=== PATIENT | male | born 1940 | race Caucasian/White ===

== ENCOUNTER 2017-04-19 05:40 | Day surgery (SDC) | payer OTHER ==
--- NOTE | 2017-04-13 17:52 | GHP ---
[f rep st] HISTORY AND PHYSICAL DATE OF ADMISSION: 04/19/2017 HISTORY OF PRESENT ILLNESS: The patient daphne 77-year-old male who underwent bilateral deep brain stim ulator lead placement to the VIM in [place] approximately 4 years ago. He has one generator at the right chest wall. He recently moved to [place] 12 to 18 months ago. He does not take any medicatio ns for the essential tremor and is pleased with the tremor control to be obtained from the DBS. He i s here today due to battery nearing end of life. PAST MEDICAL HISTORY: Essential tremor, hypertension, hyperlipidemia. PAST SURGICAL HISTORY: Bilateral DBS in 2012. SOCIAL HISTORY: Patient admits to alcohol use occasionally. Denies tobacco use. He is and has 3 children. He is retired. ALLERGIES: No known drug allergies. CURRENT HOME MEDICATIONS: Lisinopril and atorvastatin. REVIEW OF SYSTEMS: Patient denies chest pain, shortness of breath, abdominal pain, nausea, vomiting, fevers, or chills. Admits to tremors. FAMILY HISTORY: No pertinent neurosurgical family history. PHYSICAL EXAM: Patient seen and examined, appears to be in no apparent distress. Mood and affect ar e appropriate. Alert and oriented. Facial expression is symmetrical. Pupils are equal and reactive . Speech is fluent without dysarthria. The hearing is grossly intact. Muscle strength is well pres erved in his upper and lower extremities with 5/5. Sensation is intact to light touch. ASSESSMENT AND PLAN: In summary, the patient is a 77-year-old male with bilateral deep brain stimula tion for essential tremor with 1 generator located at the right chest wall. His internal pulse gener ator was interrogated. The current settings are left VIM at 1 negative, 0 positive, amplitude 3.4, p ulse width 60, rate 185. Impedance within normal limits. Right VIM 9 negative, 8 positive, amplitud e 3.3, pulse width 60, rate 185, impedance within normal limits. His battery status is nearing end o f life with status at 2.59 elective replacement indicator. We recommend proceeding with replacement of the right deep brain stimulation internal pulse generator. The risks, benefits, and procedure wer e discussed in detail with patient. The patient agrees and has consented. All questions and concern s were addressed and answered. /[id number]/MODL
[2017-04-19] MEDS ORDERED: LIDOCAINE 1% 2 ML INJ ID PRN (05:49)
[2017-04-19] MEDS ORDERED: LR 1,000 ML IV ONE (05:49)
[2017-04-19] MEDS ORDERED: ceFAZolin 2 GM/SWFI 2 GM/20 ML SYR IVP ONE (06:00)
[2017-04-19] MEDS ORDERED: CHLORHEXIDINE GLUC HIBICLENS 118 ML BTL TP ONE (06:45)
[2017-04-19] MEDS ORDERED: GENTAMICIN SULFATE 80 MG/2 ML VIAL ONE (06:46)
--- NOTE | 2017-04-19 06:55 | PDHPUP ---
History & Physical Update H&P update statement: This history and physical update is based on an assessment of the patient which was completed after admission or registration (within 24 hours), but prior to the surgery/procedure.
[2017-04-19] MEDS ORDERED: fentaNYL 100 MCG/2 ML INJ ONE (07:07)
[2017-04-19] MEDS ORDERED: LIDOCAINE 2% 5 ML SDV ONE (07:07)
[2017-04-19] MEDS ORDERED: PROPOFOL 200 MG/20 ML VIAL ONE (07:07)
--- NOTE | 2017-04-19 07:10 | PDANEPAE ---
ANE History of Present Illness patient presents for generator change (DBS). ANE Past Medical History - Cardiovascular History Hx Hypertension: Yes Hx Arrhythmias: No Hx Chest Pain: No Hx Coronary Artery / Peripheral Vascular Disease: No Hx CHF / Valvular Disease: No Hx Palpitations: No Cardiovascular History Comment: pt states has murmur unknown to which valve involved - Pulmonary History Hx COPD: No Hx Asthma/Reactive Airway Disease: No Hx Recent Upper Respiratory Infection: No Hx Oxygen in Use at Home: No Hx Sleep Apnea: No Sleep Apnea Screening Result - Last Documented: Positive - Neurologic History Hx Cerebrovascular Accident: No Hx Seizures: No Hx Dementia: No - Endocrine History Hx Diabetes: No - Renal History Hx Renal Disorders: Yes Renal History Comment: hx bladder ca - Liver History Hx Hepatic Disorders: No - Neurological & Psychiatric Hx Hx Neurological and Psychiatric Disorders: Yes Neurological / Psychiatric History Comment: essential tremor - Cancer History Hx Cancer: Yes Cancer History Comment: bladder - Congenital Disorder History Hx Congenital Disorders: No - GI History Hx Gastrointestinal Disorders: No - Other Health History Other Health History: none - Chronic Pain History Chronic Pain: No - Surgical History Prior Surgeries: bladder ca cystoscopy ANE Review of Systems Review of Systems: - Exercise capacity METS (RN): 5 METS ANE Patient History - Allergies Allergies/Adverse Reactions: No Known Allergies Allergy (Verified 03/13/17 13:57) - Home Medications Home medications: home medication list seen and reviewed Home Medications: Atorvastatin Calcium 03/13/17 [Last Taken 04/18/17 21:00] Lisinopril 03/13/17 [Last Taken 04/19/17 05:00] - NPO status NPO Status: no food or drink >8 hours NPO Since - Liquids (Date): 04/18/17 NPO Since - Liquids (Time): 21:00 NPO Since - Solids (Date): 04/18/17 NPO Since - Solids (Time): 18:00 - Anes Hx Anes Hx: no prior problems - Smoking Hx Smoking Status: Never smoked - Family Anes Hx Family Hx Anesthesia Complications: none ANE Labs/Vital Signs - Vital Signs Blood Pressure: 170/98 Heart Rate: 66 Respiratory Rate: 16 O2 Sat (%): 97 Height: 172.72 cm Weight: 74.843 kg ANE Physical Exam - Airway Neck exam: FROM Mallampati Score: Class 1 Mouth exam: normal dental/mouth exam - Pulmonary Pulmonary: no respiratory distress - Cardiovascular Cardiovascular: systolic murmur - ASA Status ASA Status: II ANE Anesthesia Plan Anesthesia Plan: GA w LMA (rba discussed)
[2017-04-19] MEDS ORDERED: PHENYLEPHRINE HCL 100 MCG/ML SYR ONE (07:25)
[2017-04-19] MEDS ORDERED: ONDANSETRON 4 MG/2 ML VIAL ONE (07:26)
[2017-04-19] MEDS ORDERED: DEXAMETHASONE 4 MG/ML VIAL ONE (07:26)
[2017-04-19] MEDS ORDERED: ATROPINE SULFATE 1 MG/ML VIAL ONE (07:28)
[2017-04-19] MEDS ORDERED: epHEDrine SULFATE 10 MG/ML SYR ONE (07:42)
[2017-04-19] MEDS ORDERED: BUPIVACAINE 0.25% 30 ML SDV ONE (07:43)
[2017-04-19] MEDS ORDERED: ONDANSETRON 4 MG/2 ML VIAL IVP PRN (08:09)
[2017-04-19] MEDS ORDERED: LR 500 ML IV PRN (08:09)
[2017-04-19] MEDS ORDERED: fentaNYL 100 MCG/2 ML INJ IVP PRN (08:09)
[2017-04-19] MEDS ORDERED: NALOXONE HCL 0.4 MG/ML INJ IVP PRN (08:09)
--- NOTE | 2017-04-19 08:13 | GOP ---
[f rep st] OPERATIVE REPORT DATE OF OPERATION: 04/19/2017 SURGEON: Lisa Garcia DO NEUROSURGEON: Lisa Garcia DO. TEMPORARY ADMINISTRATIVE ASSISTANT: KAUSHIK Brownlee. PREOPERATIVE DIAGNOSIS: 1. Essential tremor. 2. Depleted deep brain stimulator generator. POSTOPERATIVE DIAGNOSIS: 1. Essential tremor. 2. Depleted deep brain stimulator generator. PROCEDURE PERFORMED: 1. Replacement of right dual channel deep brain stimulator generator with Activa PC. 2. Impedances x2. FINDINGS: SPECIMENS: None. ESTIMATED BLOOD LOSS: 5 mL. INDICATIONS: This is a 77-year-old male with an indwelling VIM Activa PC deep brain stimulator gener ator is at end of life. He elected to move forward with replacement. He was identified, consented. Sites were marked. Brought to the operating room, anesthetized under general endotracheal anesthesi a. Hair was clipped with the OR clippers. The incision site was marked. He was prepped and draped in the usual sterile fashion. Incision was anesthetized with 0.5% Marcaine with epinephrine. Incisi on was made with a 10 blade. We dissected down with the plasma blade. Appropriate settings onto the generator brought it up and out. Using the torque wrench, removed the extension wires keeping them in the appropriate configuration. Gently dried them. Replaced them into the new generator, locked i n place with the torque wrench. Replaced into the pocket. Checked the impedances, both leads, both impedances were good. Sutured the generator to the chest wall with 2-0 silk stitches 2 positions, co piously irrigated with over a liter of gentamicin infused saline. Closed the subcutaneous layer with 2-0 Vicryl pop-offs, cutaneous layer with 3-0 Vicryl pop-offs. The skin was closed with 3-0 running nylon. Wound was dressed with Xeroform gauze and a Tegaderm. Patient tolerated the procedure well. No complications. DESCRIPTION OF PROCEDURE: FLUIDS: 900 mL of crystalloid. URINE OUTPUT: None. DRAINS: None. COMPLICATIONS: None. /[id number]/MODL
[2017-04-19] MEDS ORDERED: HYDROCODONE/APAP 5/325 TAB PO PRN (08:19)
[2017-04-19] MEDS ORDERED: ACETAMINOPHEN 325 MG TAB PO PRN (08:20)
--- NOTE | 2017-04-19 08:22 | POSTOPPROG ---
Post Op Note Date of Operation: 04/19/17 Surgeon: Lisa Garcia Engineering And Operations Director: Katie Jara PA-C Anesthesiologist: Dr. Singh Anesthesia: GET(General Endotracheal) Pre-op Diagnosis: Essential tremor Post-op Diagnosis: Essential tremor Procedure: replacement of right DBS generator Inf/Abcess present in the surg proc area at time of surgery?: No Depth: Superfical (Skin SQ) EBL: Minimal Plan Plan: 77 yo male s/p replacement of right DBS generator - neuro checks - pain control - advance diet as tolerated - dc home today Exam Patient seen in recovery. Pain controlled. Awake. Alert Following commands Moving all ext
--- NOTE | 2017-04-19 08:32 | POSTANESTH ---
Post Anesthetic Evaluation Cardiovascular Status: Similar to Pre-Op Cond Respiratory Status: Similar to Pre-op Cond. Level of Consciousness/Mental Status: Can Participate in Eval Pain Control: Adequate, Prn Tx Ordered Nausea/Vomiting Control: Adequate, Prn Tx Ordered Complications Possibly Related to Anesthesia: None Noted
[2017-04-19 08:56] VITALS: RESP 16
[2017-04-19 09:05] VITALS: BP 107/66; PULSE 74; O2SAT 93
[2017-04-19 09:39] VITALS: TEMP 97.9
== END 2017-04-19 09:20 | disposition home or self-care (01) ==
LOC: FSGY 05:40
PROVIDERS: ATTEND Neurological Surgery
PROC: 0JH60DZ Insertion of Multiple Array Stimulator Generator into Chest Subcutaneous Tissue and Fascia, Open Approach (ICD-10-PCS; principal; 2017-04-19 07:15)
DX: G25.0 Essential tremor (principal); I10 Essential (primary) hypertension; E78.5 Hyperlipidemia, unspecified
CPT/HCPCS: C1767; C1787; J0171; J0461; J0690; J1100; J2370; J2405; J2704; J3010